=== PATIENT | male | born 1995 | race African-American/Black ===

== ENCOUNTER 2019-07-19 11:07 | Emergency (ER) | payer SELFPAY ==
[~2019-07-19] VITALS: Ht 180.3 cm; Wt 77.1 kg
[2019-07-19] MEDS ORDERED: LORazepam Inj 2mg/ml 1ml IV ONE (11:30)
[2019-07-19 11:44] VITALS: BP 120/72
--- NOTE | 2019-07-19 11:44 | NUR ---
ED Nurse Note: urinal provided to the patient. patient reports he will provide urine sample as soon as possible
--- NOTE | 2019-07-19 11:45 | NUR ---
ED Nurse Note: patient brought into ED from the street by ambulance, c/o nausea and vomiting, per EMS patient was drinking orange juice and could not keep it down. per EMS, patient vomited x 8 today. patient is alert awake, on a hospital gown, on a [employer].
[2019-07-19 11:53] LABS: BASOPHILS % (AUTO) 1.3 % (0.0-2.0); EOSINOPHILS % (AUTO) 0.1 % (0.0-3.0); HEMATOCRIT 50.3 % (42.0-52.0); HEMOGLOBIN 16.8 G/DL (14.2-18.0); LYMPHOCYTES % (AUTO) 18.6 % (20.0-45.0); MEAN CORPUSCULAR VOLUME 83 FL (80-99); MONOCYTES % (AUTO) 4.9 % (1.0-10.0); PLATELET COUNT 224 K/UL (150-450); RED BLOOD COUNT 6.09 M/UL (4.70-6.10); RED CELL DISTRIBUTION WIDTH 12.8 % (11.6-14.8); WHITE BLOOD COUNT 5.6 K/UL (4.8-10.8)
[2019-07-19 11:59] LABS: INR 1.1 (0.9-1.1)
[2019-07-19 12:22] LABS: ANION GAP 14 mmol/L (5-15); BLOOD UREA NITROGEN 11 mg/dL (7-18); CALCIUM 9.6 MG/DL (8.5-10.1); CARBON DIOXIDE 23 MMOL/L (21-32); CHLORIDE 101 MMOL/L (98-107); CREATININE 1.2 MG/DL (0.55-1.30); POTASSIUM 3.2 MMOL/L (3.5-5.1); SODIUM 138 MMOL/L (136-145)
[2019-07-19 12:38] LABS: ALANINE AMINOTRANSFERASE 31 U/L (12-78); ALBUMIN 4.8 G/DL (3.4-5.0); ALBUMIN/GLOBULIN RATIO 1.4 (1.0-2.7); ALKALINE PHOSPHATASE 60 U/L (46-116); ASPARTATE AMINO TRANSFERASE 28 U/L (15-37); CKMB 3.8 NG/ML (0.0-3.6)
--- NOTE | 2019-07-19 12:50 | NUR ---
ED Nurse Note: patient uncooperative to give urine sample at this time. Dr. Danielle notified.
--- NOTE | 2019-07-19 13:09 | Emergency Room Report ---
History of Present Illness General Chief Complaint: Vomiting Source: Patient, EMS Present Illness HPI Patient is a 24-year-old male past medical history of schizophrenia who presents to the ER complaining of nausea and vomiting. Patient denies any fever or chills. He denies any abdominal pain. He also complains of some diarrhea. He denies any dysuria or hematuria. Patient states the emesis is nonbloody and nonbilious and that the diarrhea is nonbloody. He denies any rash. He denies any chest pain or shortness of breath. Patient was brought in by EMS and EMS states that he had several episodes of vomitus. Patient also is now complaining of a panic attack. He states that he feels like he is having palpitations and shortness of breath. He states that he has had anxiety attacks before. COVID-19 risk:Travel to affect: No Allergies: Coded Allergies: No Known Allergies (Unverified , 07/19/19) Patient History Past Medical History: psych hx Past Surgical History: none Social History: Reports: drug use - methamphetamines Nursing Documentation-[facility] Past Medical History: No History, Except For Hx Diabetes: Yes Review of Systems All Other Systems: negative except mentioned in HPI Physical Exam Vital Signs Date Time Temp Pulse Resp B/P (MAP) Pulse Ox O2 Delivery O2 Flow Rate FiO2 07/19/19 11:36 97.7 78 16 127/79 (95) 98 Room Air Sp02 EP Interpretation: reviewed, normal General Appearance: no apparent distress, alert, GCS 15, non-toxic, other - Disheveled and poorly groomed Head: normocephalic, atraumatic Eyes: bilateral eye normal inspection, bilateral eye PERRL ENT: hearing grossly normal, normal pharynx, no angioedema, normal voice Neck: full range of motion, supple/symm/no masses Respiratory: chest non-tender, lungs clear, normal breath sounds, speaking full sentences Cardiovascular #1: regular rate, rhythm, no edema Cardiovascular #2: 2+ carotid (R), 2+ carotid (L), 2+ radial (R), 2+ radial (L) , 2+ dorsalis pedis (R), 2+ dorsalis pedis (L) Gastrointestinal: normal bowel sounds, non tender, soft, non-distended, no guarding, no rebound Rectal: deferred Genitourinary: normal inspection, no CVA tenderness Musculoskeletal: back normal, normal range of motion, calf tenderness, gait/ station normal, non-tender Neurologic: alert, motor strength/tone normal, oriented x3, sensory intact, responsive, speech normal Psychiatric: memory normal, no suicidal/homicidal ideation, anxious Skin: no rash Lymphatic: no adenopathy Medical Decision Making Diagnostic Impression: Primary Impression: Anxiety attack Additional Impressions: Nausea and vomiting Tetrahydrocannabinol (THC) dependence Hypokalemia ER Course Patient complained of a panic attack. I gave him 1 mg of Ativan. On reevaluation his symptoms had improved. Patient given IV fluids and Zofran. On reevaluation he states that his nausea has improved and is now tolerating p.o. Patient's potassium was 3.240 mEq of oral potassium chloride have been ordered. Patient's initial lactate 3 likely due to vomiting. Repeat lactate has improved. Patient is afebrile. He has no elevated white blood cell count. He has no abdominal pain. Patient be discharged home with a prescription for Zofran. After discussing risks and benefits of further diagnostics, treatment plans, as well as indications for and risks of admission, the patient is agreeable to being discharged home. I have explained that their evaluation and treatment in the emergency department today is an important step towards them achieving better health but that their evaluation today is not intended to replace further evaluation and treatment by a physician in their local clinic. I have explained that while the current findings suggest no immediate life threatening emergency they will require further evaluation and treatment by a physician of their choice in their area. They understand that it will be necessary for them to review the final reports of their ED visit with their clinic physician. We have reviewed indications for return to the Emergency Department. I have explained that additional time may need to pass and/or additional testing as an outpatient may be necessary before a definitive diagnosis can be made. They tell me they are willing to follow up as instructed within the timeframe I recommend. They appear to understand what we discussed. Additionally they understand that if they are unable to be seen by an outpatient physician they are welcome, and in fact should, return to the Emergency Department for a repeat evaluation. The patient is stable at time of discharge. EKG Diagnostic Results EKG Time: 11:20 EP Interpretation: MD Lolis Rate: normal Rhythm: NSR ST Segments: no acute changes ASA given to the pt in ED: No Rhythm Strip Diag. Results Rhythm Strip Time: 13:08 EP Interpretation: yes - MD Lolis Rate: 57 Rhythm: NSR, no PVC's, no ectopy Last Vital Signs Date Time Temp Pulse Resp B/P (MAP) Pulse Ox O2 Delivery O2 Flow Rate FiO2 07/19/19 11:45 62 22 Room Air 07/19/19 11:44 97.5 120/72 100 Disposition: HOME, SELF-CARE Condition: Stable - improved Scripts Ondansetron* (ZOFRAN*) 4 Mg Tablet 4 MG ORAL Q6H PRN for Nausea & Vomiting, #20 TAB Prov: Erica Danielle M.D. 07/19/19 Additional Instructions: The patient was provided with discharge instructions, notified to follow-up with a primary care doctor and or specialist in the next 24-48 hours, and to return to the ED if they have worsening of their symptoms. Please note that this report is being documented using [employer] technology. This can lead to erroneous entry secondary to incorrect interpretation by the dictating instrument. Erica Danielle M.D. Jul 19, 2019 13:08
--- NOTE | 2019-07-19 13:10 | NUR ---
ED Nurse Note: Additional IVF is being infused as ordered. informed patient about the need to check urine sample. patient verbalized understanding.
--- NOTE | 2019-07-19 14:14 | Diagnostic Imaging Report ---
Indication: Dry cough for one week Technique: One view of the chest Comparison: none Findings: Lungs and pleural spaces are clear. Heart size is normal. Impression: No acute process
[2019-07-19 14:16] LABS: APPEARANCE,URINE CLEAR; BILIRUBIN, URINE 1+ (NEGATIVE); COLOR,URINE BROWN; GLUCOSE, URINE (UA) NEGATIVE (NEGATIVE); KETONES,URINE 4+ (NEGATIVE); LEUKOCYTE ESTERASE ,URINE 1+ (NEGATIVE); NITRITE,URINE NEGATIVE (NEGATIVE); PH,URINE 5 (4.5-8.0); PROTEIN,URINE 2+ (NEGATIVE); UROBILINOGEN,URINE 4 MG/DL (0.0-1.0)
[2019-07-19] MEDS ORDERED: ZOFRAN4 M3 ORAL (14:33)
[2019-07-19 15:00] VITALS: BP 128/75
--- NOTE | 2019-07-19 15:20 | NUR ---
ELOPEMENT: patient eloped with all of his belongings, after discharge information was given by MD. patient left with IV access. notified to charge nurse. RN went outside to look around the ED, unable to locate patient. patient reported himself as homeless and did not provide any address.
[2019-07-19 15:23] VITALS: BP 128/75
--- NOTE | 2019-07-19 15:23 | NUR ---
Note undone in EDM - 07/19/19 at 1635 by JUHI ER DISCHARGE NOTE: Patient is cleared to be discharged per ERMD DR HARRIS/Lolis, pt is aox4, on room air, with stable vital signs. pt was given dc and prescription instructions, pt was able to verbalize understanding, pt id band and IV removed without complications by Silvana DUKE. pt is able to ambulate with steady gait. pt took all belongings.
== END 2019-07-19 15:23 | disposition home or self-care (01) ==
LOC: EDBD 11:07 → EMR 14:28
DX: F41.9 Anxiety disorder, unspecified (principal); R11.2 Nausea with vomiting, unspecified; E87.6 Hypokalemia; F12.20 Cannabis dependence, uncomplicated; E11.9 Type 2 diabetes mellitus without complications
CPT/HCPCS: 36415; 71045; 80053; 80307; 81003; 82553; 83605; 83690; 83735; 83880; 84484; 85025; 85610; 85730; 86710; 87040; 93005; 96361; 96374; 96375; 99284; J2405; J7030; S0028; J8499